=== PATIENT | female | born 1955 | race Caucasian/White ===

== ENCOUNTER 2016-09-24 16:20 | Emergency (ER) | payer MEDICARE, OTHER ==
[2016-09-24 16:49] VITALS: BP 100/79
--- NOTE | 2016-09-24 17:10 | EDM.PDOC ---
ED HPI GENERAL MEDICAL PROBLEM - General Chief Complaint: Head Injury Stated Complaint: HEAD AND NECK PAIN Time Seen by Provider: 09/24/16 17:00 Source of Information: Reports: Patient History Limitations: Reports: No Limitations - History of Present Illness INITIAL COMMENTS - FREE TEXT/NARRATIVE: 61 year old female presents for injuries sustained from a fall. Patient has slurred speech and appears to be under the influence during my examination. She is a poor historian. Reports the fall occurred on Thursday night. Patient is wheelchair bound and has a right leg amputation. Patient reports she went backwards down a ramp and fell to the side landing on her right shoulder, neck and head. The wheelchair then fell on top of her. She is currently complaining of headaches, neck pain, right shoulder pain, chest pain and abdominal pain. Uncertain if she lost consciousness. Patient is on narcotic pain medication for chronic pain. Trauma alert minor called upon patient's arrival. Unable to collar patient due to her size. She did not fit into a pediatric nor a small adult collar. Head Pain Score (Numeric/FACES): 9 - Related Data Allergies Allergy/AdvReac Type Severity Reaction Status Date / Time morphine Allergy Rash Verified 09/24/16 16:32 diphenhydramine HCl AdvReac Shaking Verified 09/24/16 16:32 [From Benadryl] fentanyl AdvReac Nausea Verified 09/24/16 16:32 oxymorphone HCl [From Opana] AdvReac Irritabilit Verified 09/24/16 16:32 y pseudoephedrine AdvReac Anxiety Verified 09/24/16 16:32 sulfur dioxide AdvReac Nausea Verified 09/24/16 16:32 trazodone AdvReac Hallucinati Verified 09/24/16 16:32 ons Home Meds: Home Meds Hydrocodone/Acetaminophen [Lortab 7.5-325 mg Tablet] 1 - 2 each PO Q6HR #20 tablet 08/28/14 [Rx] Pregabalin [Lyrica] 100 mg PO BID #20 cap 08/28/14 [Rx] oxyCODONE ER [OxyCONTIN] 60 mg PO Q12HR PRN #20 tab.er 08/28/14 [Rx] ALPRAZolam [Xanax] 1 mg PO Q12HR PRN 02/11/15 [History] Aspirin [Ecotrin] 81 mg PO DAILY 12/27/15 [History] Beclomethasone Dipropionate [Beconase Aq] 42 mcg INH BID 02/11/15 [History] Docusate Sodium [Colace] 100 mg PO DAILY 02/11/15 [History] Levothyroxine 50 mg PO DAILY 02/11/15 [History] QUEtiapine [SEROquel] 200 mg PO DAILY 02/11/15 [History] Spironolactone [Aldactone] 50 mg PO DAILY 02/11/15 [History] Zolpidem [Ambien] 5 mg PO BEDTIME PRN 02/11/15 [History] atorvaSTATin [Lipitor] 40 mg PO DAILY 02/11/15 [History] Amoxicillin/Potassium Clav [Augmentin 875-125 Tablet] 1 each PO BID #20 tablet 09/24/16 [Rx] Omeprazole Magnesium [Prilosec Otc] 20 mg PO DAILY 09/24/16 [History] Past Medical History HEENT History: Reports: Sinusitis Cardiovascular History: Reports: High Cholesterol, Hypertension Other Cardiovascular History: NON-ST ELEVATION [place] IN 2009 Respiratory History: Reports: COPD Other Respiratory History: ACUTE RESPIRATORY FAILURE, Gastrointestinal History: Reports: Chronic Constipation, GERD, 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: Musculoskeletal History: Reports: Other (See Below) Neurological History: Reports: Neuropathy, Peripheral Other Neuro History: ENCEPHALOPATHY Psychiatric History: Reports: Anxiety, Depression Endocrine/Metabolic History: Reports: Hypothyroidism - Past Surgical History HEENT Surgical History: Reports: Adenoidectomy, Tonsillectomy Other HEENT Surgeries/Procedures: Adnoidectomy Musculoskeletal Surgical History: Reports: Other (See Below) Social & Family History - Tobacco Use Smoking Status *Q: Current Every Day Smoker Years of Tobacco use: 40 Packs/Tins Daily: 0.5 Used Tobacco, but Quit: No Second Hand Smoke Exposure: No - Recreational Drug Use Recreational Drug Use: No - Living Situation & Occupation Living situation: Reports: , Alone Occupation: Retired ED ROS GENERAL - Review of Systems Review Of Systems: See Below Cardiovascular: Reports: Chest Pain GI/Abdominal: Reports: Abdominal Pain Musculoskeletal: Reports: Neck Pain, Shoulder Pain (right), Back Pain (lumbar spine) Neurological: Reports: Headache ED EXAM, HEAD INJURY - Physical Exam Exam: See Below Exam Limited By: Other (she appears to be under the influence of some substance. she has slurred speech and is very tangential) General Appearance: Alert, WD/WN, No Apparent Distress Head: Atraumatic, Normocephalic Nexus Criteria: Evidence of Intoxication. No: Posterior, Midline Cervical Tenderness, Altered Level of Consciousness, Focal Neurological Deficit, Painful Distraction Injuries Eyes: Bilateral Eye: Normal Inspection, PERRL Ears: Normal External Exam Nose: Normal Inspection Throat/Mouth: Normal Inspection, Normal Lips, Normal Voice, No Airway Compromise Neck: Normal Alignment, Normal Inspection, Painful Range of Motion, Paraspinous Muscle Tender Respiratory: No Respiratory Distress, Lungs Clear, Normal Breath Sounds, Other ( tenderness to palpation of the right chest) Cardiovascular: Normal Peripheral Pulses, Regular Rate, Rhythm, No Murmur GI/Abdominal Exam: Normal Bowel Sounds, Soft, Tender (RUQ) Back Exam: Normal Inspection, Vertebral Tenderness (L2-L5) Extremities: Other (right leg amputation ) Neurologic: Alert, Normal Mood/Affect Skin: Normal Color, Warm/Dry - [place] Coma Score Best Eye Response ([place]): (4) Open Spontaneously Best Verbal Response ([place]): (5) Oriented Best Motor Response ([place]): (6) Obeys Commands Course - Vital Signs Last Recorded V/S: Last Vital Signs Temp 36.3 C 09/24/16 16:32 Pulse 72 09/24/16 16:32 Resp 16 09/24/16 16:32 BP 100/79 09/24/16 16:32 Pulse Ox 95 09/24/16 16:32 - Orders/Labs/Meds Labs: Laboratory Tests 09/24/16 09/24/16 09/24/16 Range/Units 16:59 17:05 17:05 WBC 12.80 H (3.98-10.04) K/mm3 RBC 3.91 L (3.98-5.22) M/mm3 Hgb 11.0 L (11.2-15.7) gm/L Hct 34.0 L (34.1-44.9) % MCV 87.0 (79.4-94.8) fl MCH 28.1 (25.6-32.2) pg MCHC 32.4 (32.2-35.5) g/dl RDW Std Deviation 44.6 (36.4-46.3) fL Plt Count 212 (182-369) K/mm3 MPV 8.8 L (9.4-12.3) fl Neut % (Auto) 60.2 (34.0-71.1) % Lymph % (Auto) 27.8 (19.3-51.7) % [place] % (Auto) 9.7 (4.7-12.5) % Eos % (Auto) 1.7 (0.7-5.8) Baso % (Auto) 0.4 (0.1-1.2) % Neut # (Auto) 7.70 H (1.56-6.13) K/mm3 Lymph # (Auto) 3.56 (1.18-3.74) K/mm3 [place] # (Auto) 1.24 H (0.24-0.36) K/mm3 Eos # (Auto) 0.22 (0.04-0.36) K/mm3 Baso # (Auto) 0.05 (0.01-0.08) K/mm3 PT 11.0 (8.0-13.0) SECONDS INR 1.01 APTT 36 (22-36) SECONDS Sodium 133 L (136-145) mEq/L Potassium 3.7 (3.5-5.1) mEq/L Chloride 98 (98-107) mEq/L Carbon Dioxide 31 (21-32) mEq/L Anion Gap 7.7 (5-15) BUN 6 L (7-18) mg/dL Creatinine 1.0 (0.55-1.02) mg/dL Est Cr Clr Drug Dosing 41.21 mL/min Estimated GFR (MDRD) 57 (>60) mL/min BUN/Creatinine Ratio 6.0 L (14-18) Glucose 88 (74-106) mg/dL Calcium 8.2 L (8.5-10.1) mg/dL Total Bilirubin 0.5 (0.2-1.0) mg/dL AST 16 (15-37) U/L ALT 13 L (14-59) U/L Alkaline Phosphatase 52 (46-116) U/L Total Protein 6.6 (6.4-8.2) g/dl Albumin 3.4 (3.4-5.0) g/dl Globulin 3.2 gm/dL Albumin/Globulin Ratio 1.1 (1-2) Meds: Medications Discontinued Medications Generic Name Dose Route Start Last Admin Trade Name Freq PRN Reason Stop Dose Admin Iopamidol 100 ml 09/24/16 17:26 09/24/16 17:49 Isovue-300 (61%) IVPUSH 09/24/16 17:27 100 ml ONETIME ONE Administration Sodium Chloride 10 ml 09/24/16 17:26 09/24/16 17:49 Saline Flush FLUSH 10 ml ONETIME PRN Administration IV FLUSH - Radiology Interpretation Free Text/Narrative:: CT of the head without contrast impression per [facility]: No evidence of an acute ischemic infarct, hemorrhage or mass CT of the cervical spine without contrast impression per [facility]: Mild degenerative changes. CT of the chest with IV contrast impression per [facility]: Multifocal, patchy areas of consolidation in the right lung, suspicious for multifocal pneumonia. In the setting of trauma, aspiration pneumonia is a consideration. There are scattered subcentimeter right pulmonary nodules. These could be inflammatory in etiology, i.e. representing multinodular pneumonia, however, recommend follow-up. Otherwise no evidence of significant acute process. Fluid-filled and mildly dilated esophagus of uncertain etiology. Chronic compression fracture of T4. Other incidental findings. CT of the abdomen and pelvis with contrast impression per [facility]: No evidence of acute traumatic organ injury or fractures. Mild colonic dilation, most likely secondary to a mild ileus. Other incidental findings. CT of the lumbar spine without contrast impression per [facility]: No acute lumbar spine fracture identified. Incidental findings. CT Results Date: 09/24/16 - Re-Assessments/Exams Free Text/Narrative Re-Assessment/Exam: 09/24/16 19:18 Patient was searched on the [place] prescription drug registry. She has received 59 prescriptions from 3 prescribers within the last year for controlled substances. Most recently she has received 84 hydrocodon- acetaminophen 7.5-325 on 09-15-16. I reviewed the CT and lab results with the patient. She is requesting medication for pain, however, she is a pain contract and receives multiple pain medications from pain services. I will discharge her home and she can take her medication she has at home as needed for pain. I will treat her with antibiotics for possible pneumonia and have her follow-up next week. Discharge instructions this documented. Departure - Departure Time of Disposition: 19:19 Disposition: Home, Self-Care 01 Condition: Fair Clinical Impression: Chronic low back pain, Pneumonia - Discharge Information Prescriptions: Amoxicillin/Potassium Clav [Augmentin 875-125 Tablet] 1 each PO BID #20 tablet Instructions: Back Pain, Adult Referrals: Miranda Hickman, LINEMAN [Primary Care Provider] - Forms: ED Department Discharge Additional Instructions: Continue with your pain medications for your chronic pain. Recommend using heat or ice to the low back as needed for additional pain relief. Follow up with your pain specialist next week as planned. Start the Augmentin 1 tablet twice a day for 10 days. I recommend you take this medication with food. I also recommend you start yogurt or probiotic to help reduce side effects of upset stomach, nausea and diarrhea. Follow-up with your primary care provider next week for recheck of your pneumonia. Please return to the ER if your symptoms change or worsen.
[2016-09-24] MEDS ORDERED: Iopamidol 612 MG/ML 100 ML Bottle IVPUSH ONE (17:26)
[2016-09-24] MEDS ORDERED: Sodium Chloride 0.9% 10 ML Syringe FLUSH PRN (17:26)
--- NOTE | 2016-09-25 11:04 | CT ---
Head CT Technique: Multiple axial sections through the brain were obtained. Intravenous contrast was not utilized. Comparison: Previous head CT exam of 10/31/14. Findings: Ventricles along with basal cisterns and sulci over the convexities are mildly prominent. Minimal diminished density noted within portions of the periventricular white matter compatible with small vessel ischemic demyelination change. No evidence of intracranial hemorrhage. No midline shift or mass effect is seen. Bone window settings were reviewed which show a large retention cyst within the right maxillary sinus which is stable from prior head CT. Minimal areas of mucosal thickening seen within the ethmoid sinuses. No acute calvarial abnormality is appreciated. Impression: 1. Minimal senescent change. Incidental sinus finding which is stable. 2. Nothing acute is identified on noncontrast head CT study. Diagnostic code #2 I agree with preliminary report issued by [employer] [facility] ([facility] report finalized on 09/24/16, 7:36 PM Central Time)
--- NOTE | 2016-09-25 11:04 | CT ---
CT cervical spine Technique: Multiple axial sections were obtained from above C1 inferiorly to the bottom of T1. Reconstructed sagittal and coronal images were reviewed. Comparison: No previous cervical spine imaging. Findings: Mild anterior osteophytes are noted at C4-C5. Vertebral body heights are maintained. Mild degenerative apophyseal change is seen mostly within the upper cervical spine. Posterior skull base is intact. Vertebral bodies and posterior arches are intact. No fracture is seen. No bony central or bony neural foraminal stenosis is seen. No abnormal subluxation is seen on the reconstructed sagittal images. Impression: 1. Mild degenerative change. 2. Nothing acute is identified on CT study of the cervical spine. Diagnostic code #2 I agree with preliminary report issued by [facility] ([facility] report finalized on 09/24/16, 7:50 PM Central Time)
--- NOTE | 2016-09-25 11:05 | CR ---
Right shoulder: Three views of the right shoulder were obtained. Glenohumeral joint and acromioclavicular joint appear unremarkable. No fracture, dislocation or other bony abnormality is seen. Impression: 1. No acute abnormality is appreciated on three-view right shoulder study. Diagnostic code #1
--- NOTE | 2016-09-25 11:05 | CT ---
CT lumbar spine Technique: Multiple axial sections were obtained through the lumbar spine. Reconstructed sagittal and coronal images were reviewed. Comparison: No previous lumbar spine CT, previous plain film lumbar spine exam of 02/11/15. Findings: Vertebral body heights and disc spaces are maintained. Degenerative apophyseal change is seen primarily at L3-L4, L4-L5 and L5-S1. Vertebral bodies and posterior arches are intact. No fracture is identified. No bony central or bony neural foraminal stenosis is seen. Minimal circumferential disc bulge noted at L4-L5. No traumatic disc herniation is seen. Impression: 1. Slight degenerative change. No acute abnormality identified on CT study of the lumbar spine. Diagnostic code #2 I agree with preliminary report issued by [facility] ([facility] report finalized at 09/24/16, 7:21 PM Central Time)
--- NOTE | 2016-09-25 11:06 | CT ---
CT chest Technique: Multiple axial sections were obtained from above the lung apices inferiorly through the lung bases. Intravenous contrast was utilized. Comparison: No previous chest CT. Findings: Fluid is identified within the esophagus compatible with reflux. Esophagus is mildly dilated. Mediastinum and hilar regions show no adenopathy or mass. Small normal-appearing lymph nodes are seen. Coronary artery calcification is noted. No pericardial thickening is seen. Patchy interstitial change noted within the right upper and lower lung. Left lung is clear. Minimal nodularity seen within the right chest believed to be incidental. No pneumothorax is seen. Bone window settings were reviewed which show no discrete rib abnormality. Mild compression deformity noted of the superior endplate of T4 which appears to be old. Other vertebral body heights are maintained on the reconstructed sagittal images. No discrete sternal abnormality seen on the reconstructed sagittal images. Impression: 1. Interstitial change is scattered throughout the right lung. This most likely is chronic and due to fibrosis. Please rule out any infectious symptoms to indicate pneumonia or chronic aspiration. 2. Fluid within the esophagus which appears dilated and likely representing chronic reflux. 3. Nothing acute is appreciated on CT study of the chest. Diagnostic code #3 I agree with preliminary report issued by [employer] [employer] ([facility] report finalized on 09/24/16, 7:34 PM Central Time) CT abdomen and pelvis Technique: Multiple axial sections were obtained from above the dome of the diaphragm inferiorly through the pubic symphysis. Intravenous contrast was utilized. No oral contrast has been given. Comparison: No previous CT abdomen and pelvis exam. Findings: Liver shows no focal parenchymal abnormality. Spleen appears within normal limits. Adrenal glands show no nodule. Kidneys show symmetric contrast enhancement without hydronephrosis or mass. Pancreas appears within normal limits. Fluid is identified within the stomach as an incidental note. Aorta shows mild atherosclerotic change without aneurysmal dilatation. Atherosclerotic change continues into the iliac vessels. No retroperitoneal adenopathy or mesenteric abnormalities are seen. No pelvic mass or adenopathy is seen. Slightly dilated colon is seen most likely due to chronic ileus. Bone window settings were reviewed showing scattered degenerative change within the spine. No acute osseous abnormality seen within the hips, pelvis or within the lumbar spine. Impression: 1. Probable chronic colonic ileus. 2. Other incidental findings. No acute abnormality is identified on CT study of the abdomen and pelvis. Diagnostic code #2 I agree with preliminary report issued by [employer] ([facility] report finalized on 09/24/16, 7:44 PM Central Time)
== END 2016-09-24 19:35 | disposition home or self-care (01) ==
LOC: JD.ED 16:20
DX: G89.29 Other chronic pain (principal); M54.5 Low back pain; J18.9 Pneumonia, unspecified organism; Z99.3 Dependence on wheelchair; Z89.611 Acquired absence of right leg above knee; Z88.8 Allergy status to other drugs, medicaments and biological substances; Z79.82 Long term (current) use of aspirin; Z79.899 Other long term (current) drug therapy; E78.00 Pure hypercholesterolemia, unspecified; I10 Essential (primary) hypertension; J44.9 Chronic obstructive pulmonary disease, unspecified; K21.9 Gastro-esophageal reflux disease without esophagitis; F41.9 Anxiety disorder, unspecified; F32.9 Major depressive disorder, single episode, unspecified; G62.9 Polyneuropathy, unspecified; Z98.890 Other specified postprocedural states; F17.210 Nicotine dependence, cigarettes, uncomplicated; I21.4 Non-ST elevation (NSTEMI) myocardial infarction
CPT/HCPCS: 36415; 70450; 71260; 72125; 72131; 73030; 74177; 80053; 85025; 85610; 85730; 99284; J7050; Q9967

== ENCOUNTER 2017-08-07 10:25 | Emergency (ER) | payer MEDICARE, OTHER ==
[2017-08-07] MEDS ORDERED: Ketorolac 60 MG/2 ML SDV IM ONE (11:17)
--- NOTE | 2017-08-07 11:21 | EDM.PDOC ---
ED HPI GENERAL MEDICAL PROBLEM - General Chief Complaint: Lower Extremity Injury/Pain Stated Complaint: ABDOMINAL PAIN Time Seen by Provider: 08/07/17 11:10 Source of Information: Reports: Patient History Limitations: Reports: No Limitations - History of Present Illness INITIAL COMMENTS - FREE TEXT/NARRATIVE: 62-year-old female presents for management of her phantom pain. 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 She is currently in a pain contract and is taking OxyContin 60 mg every 12 hours, Lyrica 100 mg twice a day and Lortab 1 tab every 6 hours. She is in a pain contract with [facility]. Reports that she started experiencing severe stabbing pain to her stump wound 7 PM last night. Her last dose of OxyContin was at 11 PM. Last dose of Lyrica was at 11 PM. Her last Lortab was around 7 AM. She denies any new trauma, falls him etc. Review of the patient's drug registry shows that she was prescribed OxyContin 60 mg tabs #56 on 08-04-17. She was also given Lortabs 7.5-325 #84 on 07-28-17. She was given enough to take 6 per day, 1 every 4 hours. 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 Right Leg Pain Score (Numeric/FACES): 10 - Related Data Allergies Allergy/AdvReac Type Severity Reaction Status Date / Time morphine Allergy Rash Verified 08/07/17 10:36 diphenhydramine HCl AdvReac Shaking Verified 08/07/17 10:36 [From Benadryl] fentanyl AdvReac Nausea Verified 08/07/17 10:36 oxymorphone HCl [From Opana] AdvReac Irritabilit Verified 08/07/17 10:36 y pseudoephedrine AdvReac Anxiety Verified 08/07/17 10:36 sulfur dioxide AdvReac Nausea Verified 08/07/17 10:36 trazodone AdvReac Hallucinati Verified 08/07/17 10:36 ons Home Meds: Home Meds Hydrocodone/Acetaminophen [Lortab 7.5-325 mg Tablet] 1 - 2 each PO Q6HR #20 tablet 08/28/14 [Rx] Pregabalin [Lyrica] 100 mg PO BID #20 cap 08/28/14 [Rx] oxyCODONE ER [OxyCONTIN] 60 mg PO Q12HR PRN #20 tab.er 08/28/14 [Rx] ALPRAZolam [Xanax] 1 mg PO Q12HR PRN 02/11/15 [History] Aspirin [Ecotrin] 81 mg PO DAILY 02/11/15 [History] Beclomethasone Dipropionate [Beconase Aq] 42 mcg INH BID 02/11/15 [History] Docusate Sodium [Colace] 100 mg PO DAILY 02/11/15 [History] Levothyroxine 50 mcg PO DAILY 02/11/15 [History] QUEtiapine [SEROquel] 300 mg PO DAILY 02/11/15 [History] Spironolactone [Aldactone] 50 mg PO DAILY 02/11/15 [History] atorvaSTATin [Lipitor] 40 mg PO DAILY 02/11/15 [History] Omeprazole Magnesium [Prilosec Otc] 20 mg PO DAILY 09/24/16 [History] Diclofenac Sodium [Voltaren] 4 gm TP Q8HR PRN #1 tube 08/07/17 [Rx] Orphenadrine [Norflex] 100 mg PO BID PRN #20 tab.er 08/07/17 [Rx] Past Medical History HEENT History: Reports: Sinusitis Cardiovascular History: Reports: High Cholesterol, Hypertension Other Cardiovascular History: NON-ST ELEVATION [place] IN 2009 Respiratory History: Reports: COPD Other Respiratory History: ACUTE RESPIRATORY FAILURE, Gastrointestinal History: Reports: Chronic Constipation, GERD, 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: Musculoskeletal History: Reports: Other (See Below) Neurological History: Reports: Neuropathy, Peripheral Other Neuro History: ENCEPHALOPATHY Psychiatric History: Reports: Anxiety, Depression Endocrine/Metabolic History: Reports: Hypothyroidism - Past Surgical History HEENT Surgical History: Reports: Adenoidectomy, Tonsillectomy Other HEENT Surgeries/Procedures: Adnoidectomy Musculoskeletal Surgical History: Reports: Other (See Below) Social & Family History - Tobacco Use Smoking Status *Q: Current Every Day Smoker Years of Tobacco use: 40 Packs/Tins Daily: 1 - Caffeine Use Caffeine Use: Reports: None - Recreational Drug Use Recreational Drug Use: No - Living Situation & Occupation Living situation: Reports: , Alone Occupation: Retired Review of Systems - Review of Systems Review Of Systems: ROS reveals no pertinent complaints other than HPI. ED EXAM, GENERAL - Physical Exam Exam: See Below Exam Limited By: No Limitations General Appearance: Alert, WD/WN, Moderate Distress, Thin Respiratory/Chest: No Respiratory Distress, Lungs Clear, Normal Breath Sounds Cardiovascular: Normal Peripheral Pulses, Regular Rate, Rhythm, No Murmur Extremities: Normal Inspection, Other (right AKA, no swelling ,brusing, erythema to the stump). No: Increased Warmth Neurological: Alert, Oriented, Normal Cognition Psychiatric: Normal Affect, Normal Mood Skin Exam: Warm, Dry, Normal Color Course - Vital Signs Last Recorded V/S: Last Vital Signs Temp 98.1 F 08/07/17 10:36 Pulse 80 08/07/17 12:41 Resp 18 08/07/17 10:36 BP 130/75 08/07/17 12:41 Pulse Ox 100 08/07/17 10:36 - Orders/Labs/Meds Meds: Medications Discontinued Medications Generic Name Dose Route Start Last Admin Trade Name Freq PRN Reason Stop Dose Admin Ketorolac Tromethamine 60 mg 08/07/17 11:17 08/07/17 11:50 Toradol IM 08/07/17 11:18 60 mg ONETIME ONE Administration Orphenadrine Citrate 100 mg 08/07/17 12:11 08/07/17 12:32 Norflex PO 08/07/17 12:12 100 mg NOW STA Administration - Re-Assessments/Exams Free Text/Narrative Re-Assessment/Exam: 08/07/17 12:10 Checked on the patient. She did take her Lyrica and her OxyContin. She has not had any pain relief. I did give her a shot of Toradol. Unfortunately, because she is in a pain contract and this is a chronic pain issue there is not much more I can do. We'll try a muscle relaxer and I will prescribe her some topical Voltaren cream but I encouraged her to follow-up with her pain has been clinic for further management of her chronic pain. I encouraged her to take her norco every 4 hours as prescribed. Discharge instructions as documented. Departure - Departure Time of Disposition: 12:10 Disposition: Home, Self-Care 01 Condition: Fair Clinical Impression: Phantom limb pain - Discharge Information Prescriptions: Diclofenac Sodium [Voltaren] 4 gm TP Q8HR PRN #1 tube PRN Reason: Pain Orphenadrine [Norflex] 100 mg PO BID PRN #20 tab.er PRN Reason: Pain Instructions: Phantom Limb Pain Referrals: Miranda Hickman DIRECT CARE STAFFER [Primary Care Provider] - Forms: ED Department Discharge Additional Instructions: Continue with your current plan of care. Recommend that you take one year Lortabs as soon as you get home. You can take 1 every 4 hours for pain. Recommend trying the Voltaren, apply every 8 hours as needed. Recommend using ice or heat. Contact your pain clinic to let them know you're having difficulty with pain management you may need to your medications readjusted. Take the norflex 1 tab PO bid prn pain and muscles spasms. Follow-up with your primary care provider as needed for additional help and pain relief. Please return to the ER for symptoms change or worsen.
[2017-08-07] MEDS ORDERED: Orphenadrine 100 MG Tab.ER PO STA (12:11)
[2017-08-07 12:42] VITALS: BP 130/75
== END 2017-08-07 12:40 | disposition home or self-care (01) ==
LOC: JD.ED 10:25
DX: G54.6 Phantom limb syndrome with pain (principal); Z89.611 Acquired absence of right leg above knee; I10 Essential (primary) hypertension; E78.00 Pure hypercholesterolemia, unspecified; J44.9 Chronic obstructive pulmonary disease, unspecified; F41.9 Anxiety disorder, unspecified; F32.9 Major depressive disorder, single episode, unspecified; F17.210 Nicotine dependence, cigarettes, uncomplicated; Z88.5 Allergy status to narcotic agent; Z88.8 Allergy status to other drugs, medicaments and biological substances
CPT/HCPCS: 96374; 99283; A9270; J1885

== ENCOUNTER 2019-02-25 16:44 | Emergency (ER) | payer OTHER, MEDICARE, MEDICAID ==
[2019-02-25 17:09] VITALS: BP 126/79; PULSE 78
[2019-02-25] MEDS ORDERED: Ketorolac 60 MG/2 ML SDV IM ONE (17:21)
[2019-02-25] MEDS ORDERED: Promethazine 25 MG/ML SDV IM ONE (17:21)
--- NOTE | 2019-02-25 17:28 | EDM.PDOC ---
ED HPI GENERAL MEDICAL PROBLEM - General Chief Complaint: Head Injury Stated Complaint: HEAD INJURY Time Seen by Provider: 02/25/19 17:01 Source of Information: Reports: Patient History Limitations: Reports: No Limitations - History of Present Illness INITIAL COMMENTS - FREE TEXT/NARRATIVE: Patient is a 63-year-old female who presents with complaints of headache, nausea , photosensitivity and left wrist pain after falling approximately 2 days ago. Patient has a right [id number] amputation and states that she was transferring herself from her wheelchair to the toilet. Her foot got hooked on a rug and she fell and hit her forehead on the toilet. She states after that she actually fell a couple more times striking her head. She does have chronic pain and is on numerous narcotic pain meds to manage this. She also takes a daily aspirin. She denies any loss of consciousness with this injury and has no pain in her neck. She also denies any dizziness. She states that she was at therapy prior to coming here and they recommended that she come to the ER. Her primary care provider is Jessika Horne. Head Pain Score (Numeric/FACES): 10 Left Wrist Pain Score (Numeric/FACES): 10 - Related Data Allergies Allergy/AdvReac Type Severity Reaction Status Date / Time acetaminophen Allergy Hives Verified 02/25/19 16:59 [From Darvocet-N] amoxicillin [From Augmentin] Allergy Hives Verified 02/25/19 16:59 clavulanic acid Allergy Hives Verified 02/25/19 16:59 [From Augmentin] clonazepam [From Klonopin] Allergy Hives Verified 02/25/19 16:59 doxycycline Allergy Hives Verified 02/25/19 16:59 morphine Allergy Rash Verified 08/07/17 10:36 oxycodone [From Percocet] Allergy Hives Verified 02/25/19 16:59 oxymorphone [From Opana] Allergy Hives Verified 02/25/19 16:59 propoxyphene Allergy Hives Verified 02/25/19 16:59 [From Darvocet-N] diphenhydramine HCl AdvReac Shaking Verified 08/07/17 10:36 [From Benadryl] fentanyl AdvReac Nausea Verified 08/07/17 10:36 oxymorphone HCl [From Opana] AdvReac Irritabilit Verified 08/07/17 10:36 y pseudoephedrine AdvReac Anxiety Verified 08/07/17 10:36 sulfur dioxide AdvReac Nausea Verified 08/07/17 10:36 trazodone AdvReac Hallucinati Verified 08/07/17 10:36 ons Home Meds: Home Meds Hydrocodone/Acetaminophen [Lortab 7.5-325 mg Tablet] 1 - 2 each PO Q6HR #20 tablet 08/28/14 [Rx] Pregabalin [Lyrica] 100 mg PO BID #20 cap 08/28/14 [Rx] oxyCODONE ER [OxyCONTIN] 60 mg PO Q12HR PRN #20 tab.er 08/28/14 [Rx] ALPRAZolam [Xanax] 1 mg PO Q12HR PRN 02/11/15 [History] Aspirin [Ecotrin EC] 81 mg PO DAILY 02/11/15 [History] Beclomethasone Dipropionate [Beconase Aq] 42 mcg INH BID 02/11/15 [History] Docusate Sodium [Colace] 100 mg PO DAILY 02/11/15 [History] Levothyroxine 50 mcg PO DAILY 02/11/15 [History] QUEtiapine [SEROquel] 300 mg PO DAILY 02/11/15 [History] Spironolactone [Aldactone] 50 mg PO DAILY 02/11/15 [History] atorvaSTATin [Lipitor] 40 mg PO DAILY 02/11/15 [History] Omeprazole Magnesium [Prilosec Otc] 20 mg PO DAILY 09/24/16 [History] Diclofenac Sodium [Voltaren] 4 gm TP Q8HR PRN #1 tube 08/07/17 [Rx] Orphenadrine [Norflex] 100 mg PO BID PRN #20 tab.er 08/07/17 [Rx] Past Medical History HEENT History: Reports: Sinusitis Cardiovascular History: Reports: High Cholesterol, Hypertension Other Cardiovascular History: [place] IN 2009 Respiratory History: Reports: COPD Other Respiratory History: ACUTE RESPIRATORY FAILURE, Gastrointestinal History: Reports: Chronic Constipation, GERD, P[employer] 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[employer]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 History: Reports: Musculoskeletal History: Reports: Back Pain, Chronic Neurological History: Reports: Neuropathy, Peripheral Other Neuro History: ENCEPHALOPATHY Psychiatric History: Reports: Anxiety, Depression Endocrine/Metabolic History: Reports: Hypothyroidism - Past Surgical History HEENT Surgical History: Reports: Adenoidectomy, Tonsillectomy Other HEENT Surgeries/Procedures: Adnoidectomy Musculoskeletal Surgical History: Reports: Amputation Social & Family History - Family History Family Medical History: Noncontributory - Tobacco Use Smoking Status *Q: Unknown Ever Smoked - Caffeine Use Caffeine Use: Reports: None - Living Situation & Occupation Living situation: Reports: , Alone Occupation: Retired ED ROS GENERAL - Review of Systems Review Of Systems: Comprehensive ROS is negative, except as noted in HPI. ED EXAM, HEAD INJURY - Physical Exam Exam: See Below Exam Limited By: No Limitations General Appearance: Alert, WD/WN, Mild Distress Head: Normocephalic, Other (very faint area of ecchymosis to left upper forehead.) Nexus Criteria: No: Posterior, Midline Cervical Tenderness, Evidence of Intoxication, Altered Level of Consciousness, Focal Neurological Deficit, Painful Distraction Injuries Eyes: Bilateral Eye: PERRL Ears: Normal External Exam, Normal Canal, Normal TMs Neck: Non-Tender, Full Range of Motion, Normal Alignment, Normal Inspection Respiratory: No Respiratory Distress, Lungs Clear, Normal Breath Sounds, No Accessory Muscle Use, Chest Non-Tender Cardiovascular: Normal Peripheral Pulses, Regular Rate, Rhythm, No Edema, No Murmur Extremities: Other (right [id number]-lyoa amputation. Faint eccymotic area to the dorsal wrist. Tender to palpation in this area. No obvious deformity or edema.) Neurologic: No Motor/Sensory Deficits, Alert, Normal Mood/Affect, Oriented x 3 Skin: Normal Color, Warm/Dry - [place] Coma Score Best Eye Response ([place]): (4) Open Spontaneously Best Verbal Response ([place]): (5) Oriented Best Motor Response ([place]): (6) Obeys Commands Course - Vital Signs Last Recorded V/S: Last Vital Signs Temp 97.5 F 02/25/19 17:04 Pulse 78 02/25/19 17:04 Resp 16 02/25/19 17:04 BP 126/79 02/25/19 17:04 Pulse Ox 97 02/25/19 17:04 - Orders/Labs/Meds Meds: Medications Discontinued Medications Generic Name Dose Route Start Last Admin Trade Name Freq PRN Reason Stop Dose Admin Ketorolac Tromethamine 60 mg 02/25/19 17:21 02/25/19 17:59 Toradol IM 02/25/19 17:22 60 mg ONETIME ONE Administration Promethazine HCl 12.5 mg 02/25/19 17:21 02/25/19 17:59 Phenergan IM 02/25/19 17:22 12.5 mg ONETIME ONE Administration - Re-Assessments/Exams Free Text/Narrative Re-Assessment/Exam: based on patient's exam and history, I feel is likely she is suffering from a concussion. She is on an aspirin daily so I do feel that a CT of the head is warranted.I have ordered a head CT as well as an x-ray of her left wrist. I will give her some IM Phenergan she states she's taken this safely in the past and works well for her. I'll also give her a dose of IM Toradol. I'm not comfortable giving her any additional narcotic pain medications as she is on a significant amount on a routine basis already. 02/25/19 18:[address] was negative for any acute findings. There are no signs of fracture to her left wrist. I feel is likely that she has suffering from a concussion, as well as a left wrist sprain. Discussed these findings with her. We will discharge her home with a brace for her left wrist. discharge instructions as noted. Departure - Departure Time of Disposition: 18:11 Disposition: Home, Self-Care 01 Condition: Fair Clinical Impression: Concussion with no loss of consciousness Left wrist sprain Qualifiers: Encounter type: initial encounter Qualified Code(s): S63.502A - Unspecified sprain of left wrist, initial encounter - Discharge Information *PRESCRIPTION DRUG MONITORING PROGRAM REVIEWED*: No *COPY OF PRESCRIPTION DRUG MONITORING REPORT IN PATIENT [place]: No Instructions: Concussion, Adult, [id number], Wrist Sprain, Adult Referrals: Kaylan Horne NP [Primary Care Provider] - Forms: ED Department Discharge Additional Instructions: You were seen in the emergency Department today for headache, nausea, and left wrist pain after falling [address] of your head was completed and this was normal. There are no signs of fractures to her left wrist. I feel it is likely that you are suffering from a concussion. Treatment for this as brain rest. I recommended limiting the use of screen such as cell phones and television. You have been provided a wrist brace for your left wrist. Use this for comfort until the pain resolves. If after 10 days you continue to have pain in her left wrist, I do recommend that she follow up with her primary care provider for recheck. If you experience any new or worsening symptoms, please do not hesitate to return to the emergency department. Sepsis Event Note - Evaluation Sepsis Screening Result: No Definite Risk - Focused Exam Date Exam was Performed: 02/28/19 Time Exam was Performed: 07:19
--- NOTE | 2019-02-25 18:06 | CT ---
Head CT Technique: Multiple axial sections through the brain were obtained. Intravenous contrast was not utilized. Comparison: Prior head CT study of 09/24/16. Findings: Ventricles along with basal cisterns and sulci over the convexities are mildly prominent. Minimal diminished density is noted within the periventricular white matter compatible with small vessel ischemic demyelination change. No other abnormal parenchymal densities are seen. No evidence of intracranial hemorrhage. No midline shift or mass effect is seen. Bone window settings were reviewed. Visualized paranasal sinuses show nothing acute. Visualized mastoid sinuses also show nothing acute. No acute calvarial abnormality is appreciated. Impression: 1. Minimal senescent change. 2. Nothing acute is appreciated on noncontrast head CT exam. Diagnostic code #2 This report was dictated in [place] Standard Time
--- NOTE | 2019-02-27 19:59 | CR ---
Left wrist: Four views of the left wrist were obtained. Comparison: No prior wrist exam. Joint spaces are preserved. No fracture, dislocation or other bony abnormality is seen. Impression: 1. No abnormality is appreciated on left wrist exam. Diagnostic code #1 This report was dictated in [place] Standard Time
== END 2019-02-25 18:36 | disposition home or self-care (01) ==
LOC: JD.ED 16:44
DX: S06.0X0A Concussion without loss of consciousness, initial encounter (principal); S63.502A Unspecified sprain of left wrist, initial encounter; K21.9 Gastro-esophageal reflux disease without esophagitis; I25.2 Old myocardial infarction; J44.9 Chronic obstructive pulmonary disease, unspecified; I10 Essential (primary) hypertension; F41.9 Anxiety disorder, unspecified; F32.9 Major depressive disorder, single episode, unspecified; E03.9 Hypothyroidism, unspecified; Z79.82 Long term (current) use of aspirin; Z79.899 Other long term (current) drug therapy; Z88.5 Allergy status to narcotic agent; Z88.2 Allergy status to sulfonamides; Z88.8 Allergy status to other drugs, medicaments and biological substances; Z89.611 Acquired absence of right leg above knee; W18.09XA Striking against other object with subsequent fall, initial encounter
CPT/HCPCS: 70450; 73110; 96372; 99284; J1885; J2550; 99283

== ENCOUNTER 2019-10-07 21:35 | Emergency (ER) | payer MEDICARE, MEDICAID ==
[2019-10-07 22:04] VITALS: BP 130/86; PULSE 77
--- NOTE | 2019-10-07 22:31 | EDM.PDOC ---
ED HPI GENERAL MEDICAL PROBLEM - General Chief Complaint: Upper Extremity Injury/Pain Stated Complaint: RT ELBOW PAIN Time Seen by Provider: 10/07/19 21:36 Source of Information: Reports: Patient History Limitations: Reports: No Limitations - History of Present Illness INITIAL COMMENTS - FREE TEXT/NARRATIVE: The patient presents with right wrist weakness. She said last night she was in her wheel chair and she turned and hit her left forearm and wrist. She had some minor pain with it. She went to bed and this morning she woke up and she has right wrest weakness. She cannot extend her right wrist. She has no pain now. She said a similar thing happened to her left wrist. She had a splint and therapy and she did good. She does have a history of neuropathy. She is right handed. Onset: Gradual Duration: Day(s): (lat night) Location: Reports: Upper Extremity, Right Severity: Severe Improves with: Reports: None Worsens with: Reports: None Associated Symptoms: Reports: No Other Symptoms right wrist Pain Score (Numeric/FACES): 4 - Related Data Allergies Allergy/AdvReac Type Severity Reaction Status Date / Time acetaminophen Allergy Hives Verified 10/07/19 22:04 [From Darvocet-N] amoxicillin [From Augmentin] Allergy Hives Verified 10/07/19 22:04 clavulanic acid Allergy Hives Verified 10/07/19 22:04 [From Augmentin] clonazepam [From Klonopin] Allergy Hives Verified 10/07/19 22:04 doxycycline Allergy Hives Verified 10/07/19 22:04 morphine Allergy Rash Verified 10/07/19 22:04 oxycodone [From Percocet] Allergy Hives Verified 10/07/19 22:04 oxymorphone [From Opana] Allergy Hives Verified 10/07/19 22:04 propoxyphene Allergy Hives Verified 10/07/19 22:04 [From Darvocet-N] diphenhydramine HCl AdvReac Shaking Verified 10/07/19 22:04 [From Benadryl] fentanyl AdvReac Nausea Verified 10/07/19 22:04 oxymorphone HCl [From Opana] AdvReac Irritabilit Verified 10/07/19 22:04 y pseudoephedrine AdvReac Anxiety Verified 10/07/19 22:04 sulfur dioxide AdvReac Nausea Verified 10/07/19 22:04 trazodone AdvReac Hallucinati Verified 10/07/19 22:04 ons Home Meds: Home Meds Hydrocodone/Acetaminophen [Lortab 7.5-325 mg Tablet] 1 - 2 each PO Q6HR #20 tablet 08/28/14 [Rx] Pregabalin [Lyrica] 100 mg PO BID #20 cap 08/28/14 [Rx] oxyCODONE ER [OxyCONTIN] 60 mg PO Q12HR PRN #20 tab.er 08/28/14 [Rx] ALPRAZolam [Xanax] 1 mg PO Q12HR PRN 02/11/15 [History] Aspirin [Ecotrin EC] 81 mg PO DAILY 02/11/15 [History] Beclomethasone Dipropionate [Beconase Aq] 42 mcg INH BID 02/11/15 [History] Docusate Sodium [Colace] 100 mg PO DAILY 02/11/15 [History] Levothyroxine 50 mcg PO DAILY 02/11/15 [History] QUEtiapine [SEROquel] 300 mg PO DAILY 02/11/15 [History] Spironolactone [Aldactone] 50 mg PO DAILY 02/11/15 [History] atorvaSTATin [Lipitor] 40 mg PO DAILY 02/11/15 [History] Omeprazole Magnesium [Prilosec Otc] 20 mg PO DAILY 09/24/16 [History] Diclofenac Sodium [Voltaren] 4 gm TP Q8HR PRN #1 tube 08/07/17 [Rx] Orphenadrine [Norflex] 100 mg PO BID PRN #20 tab.er 08/07/17 [Rx] Past Medical History HEENT History: Reports: Sinusitis Cardiovascular History: Reports: High Cholesterol, Hypertension Other Cardiovascular History: [place] IN 2009 Respiratory History: Reports: COPD Other Respiratory History: ACUTE RESPIRATORY FAILURE, Gastrointestinal History: Reports: Chronic Constipation, GERD, 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: Musculoskeletal History: Reports: Back Pain, Chronic Neurological History: Reports: Neuropathy, Peripheral Other Neuro History: ENCEPHALOPATHY Psychiatric History: Reports: Anxiety, Depression Endocrine/Metabolic History: Reports: Hypothyroidism - Past Surgical History HEENT Surgical History: Reports: Adenoidectomy, Tonsillectomy Other HEENT Surgeries/Procedures: Adnoidectomy Musculoskeletal Surgical History: Reports: Amputation Social & Family History - Family History Family Medical History: Noncontributory - Tobacco Use Smoking Status *Q: Current Every Day Smoker Years of Tobacco use: 45 Packs/Tins Daily: 0.2 - Caffeine Use Caffeine Use: Reports: None - Recreational Drug Use Recreational Drug Use: No - Living Situation & Occupation Living situation: Reports: , Alone Occupation: Retired Review of Systems - Review of Systems Review Of Systems: See Below Constitutional: Reports: No Symptoms Eyes: Reports: No Symptoms Ears: Reports: No Symptoms Nose: Reports: No Symptoms Mouth/Throat: Reports: No Symptoms Respiratory: Reports: No Symptoms Cardiovascular: Reports: No Symptoms GI/Abdominal: Reports: No Symptoms Genitourinary: Reports: No Symptoms Musculoskeletal: Reports: Other (right wrist weakness.) ED EXAM, GENERAL - Physical Exam Exam: See Below Exam Limited By: No Limitations General Appearance: Alert, No Apparent Distress Ears: Normal External Exam Nose: Normal Inspection Head: Atraumatic, Normocephalic Neck: Normal Inspection Respiratory/Chest: No Respiratory Distress Extremities: Other (the patient cannot extend her right wrist. She has mild numbness to her right hand.) Course - Vital Signs Last Recorded V/S: Last Vital Signs Temp 97.3 F 10/07/19 22:01 Pulse 77 10/07/19 22:01 Resp 16 10/07/19 22:01 BP 130/86 10/07/19 22:01 Pulse Ox 98 10/07/19 22:01 - Orders/Labs/Meds Orders: Active Orders 24 hr Category Date Time Status Durable Medical Equipment for Discharge [DME for Oth 10/07/19 22:25 Ordered Discharge] [COMM] Stat - Re-Assessments/Exams Free Text/Narrative Re-Assessment/Exam: 10/07/19 22:29 I have ordered a wrist splint. I will have her follow up with her doctor. Departure - Departure Time of Disposition: 22:30 Disposition: Home, Self-Care 01 Condition: Good Clinical Impression: Right wrist drop - Discharge Information *PRESCRIPTION DRUG MONITORING PROGRAM REVIEWED*: Not Applicable *COPY OF PRESCRIPTION DRUG MONITORING REPORT IN PATIENT [place]: Not Applicable Referrals: Kaylan Horne NP [Primary Care Provider] - 1 Week Additional Instructions: Wear your wrist splint as much as you can for a couple of weeks. Follow up with physical therapy this week and your doctor within a week. Please return if you are worse. Sepsis Event Note (ED) - Evaluation Sepsis Screening Result: No Definite Risk - Focused Exam Vital Signs: Vital Signs Temp Pulse Resp BP Pulse Ox 10/07/19 22:01 97.3 F 77 16 130/86 98 - My Orders Last 24 Hours: My Active Orders 10/07/19 22:25 Durable Medical Equipment for Discharge [DME for Discharge] [COMM] Stat - Assessment/Plan Last 24 Hours: My Active Orders 10/07/19 22:25 Durable Medical Equipment for Discharge [DME for Discharge] [COMM] Stat
== END 2019-10-07 22:57 | disposition home or self-care (01) ==
LOC: JD.ED 21:35
DX: M21.331 Wrist drop, right wrist (principal); R20.0 Anesthesia of skin; I10 Essential (primary) hypertension; E78.00 Pure hypercholesterolemia, unspecified; J44.9 Chronic obstructive pulmonary disease, unspecified; I25.2 Old myocardial infarction; K21.9 Gastro-esophageal reflux disease without esophagitis; G62.9 Polyneuropathy, unspecified; E03.9 Hypothyroidism, unspecified; F41.9 Anxiety disorder, unspecified; F32.9 Major depressive disorder, single episode, unspecified; F17.210 Nicotine dependence, cigarettes, uncomplicated; Z88.5 Allergy status to narcotic agent; Z90.49 Acquired absence of other specified parts of digestive tract; Z79.82 Long term (current) use of aspirin; Z88.1 Allergy status to other antibiotic agents; Z88.8 Allergy status to other drugs, medicaments and biological substances; Z88.4 Allergy status to anesthetic agent; Z79.899 Other long term (current) drug therapy
CPT/HCPCS: 99282; 99284